=== PATIENT | female | born 1960 | race American Indian/Alaskan Native ===

== ENCOUNTER 2021-10-29 00:56 | Emergency (ER) | payer MEDICARE ==
[2021-10-29 01:04] VITALS: BP 124/78
--- NOTE | 2021-10-29 01:04 | Event Note ---
ED Screening Note Date of service: 10/29/21 Time: 01:03 ED Screening Note: Is a 61-year-old female with a history of CAD, HTN, Obesity, diverticulitis, who presents for epigastric pain radiating to left lower quadrant nausea vomiting, states unable to have bowel movement for the past 2 days. It was exacerbated by attempted p.o., symptoms are relieved by nothing tried. This initial assessment/diagnostic orders/clinical plan/treatment(s) is/are subject to change based on patients health status, clinical progression and re- assessment by fellow clinical providers in the ED. Further treatment and workup at subsequent clinical providers discretion. Patient/guardian urged not to elope from the ED as their condition may be serious if not clinically assessed and managed. Initial orders include: EKG, trop, cbc, cmp, ua, cxr, iv, ct abd pelv
[2021-10-29 01:31] LABS: Basophils # (Auto) 0.1 K/mm3 (0.0-0.1); Basophils % (Auto) 1.2 % (0.0-1.8); Eosinophils # (Auto) 0.2 K/mm3 (0.0-0.4); Eosinophils % (Auto) 2.5 % (0.0-4.3); Hematocrit 41.4 % (30.3-42.9); Hemoglobin 13.7 gm/dl (10.1-14.3); Mean Corpuscular HGB Conc 33 % (30-34); Mean Corpuscular Volume 90 fl (79-97); Monocytes # (Auto) 0.6 K/mm3 (0.0-0.8); Platelet Count 284 K/mm3 (140-440); Red Blood Count 4.63 M/mm3 (3.65-5.03); Red Cell Distribution Width 14.6 % (13.2-15.2)
--- NOTE | 2021-10-29 01:49 | XRay Report ---
CHEST 2 VIEWS INDICATION: chest pain. COMPARISON: None FINDINGS: SUPPORT DEVICES: None. HEART: Within normal limits. LUNGS/PLEURA: No acute air space or interstitial disease. No pneumothorax. ADDITIONAL FINDINGS: None. IMPRESSION: 1. No acute findings. Signer Name: Antwan Bello MD Signed: 10/29/2021 1:45 AM Workstation Name: [id number]
[2021-10-29 01:52] LABS: Alanine Aminotransferase 15 units/L (7-56); Albumin 4.5 g/dL (3.9-5); BUN/Creatinine Ratio 14; Blood Urea Nitrogen 14 mg/dL (7-17); Calcium 10.1 mg/dL (8.4-10.2); Hemolysis Index 2
[2021-10-29] MEDS ORDERED: SODIUM CHLORIDE 0.9% 1000 ML 1,000 ML IV ONE (03:00)
[2021-10-29] MEDS ORDERED: ONDANSETRON 4 MG/2 ML INJ IV ONE (03:00)
--- NOTE | 2021-10-29 04:32 | Cat Scan Report ---
CT ABDOMEN AND PELVIS WITH CONTRAST HISTORY: Pt complains of abd pain with N/V, Hx of Diverticulitis. COMPARISON: None. TECHNIQUE: CT images of the abdomen and pelvis were obtained following administration of intravenous contrast. All CT scans at this location are performed using CT dose reduction for ALARA by means of automated exposure control. CONTRAST: 100 ml of intravenous contrast administered. FINDINGS: Lungs/bones: Lung bases are clear. Degenerative changes in the spine and the pelvis with no acute os seous abnormality. Abdomen/pelvis: The liver is enlarged with no focal mass. The gallbladder, spleen, pancreas, adrenal s, kidneys, and maximal GI tract appear unremarkable. Bladder is unremarkable. Uterus is surgically absent. No pelvic free fluid. There is moderate colonic diverticulosis without significant inflammatory change or wall thickening i dentified. No free air or abscess formation to suggest perforation. No bowel obstruction. IMPRESSION: 1. No acute abnormality identified. Moderate colonic diverticulosis. Signer Name: Antwan Bello MD Signed: 10/29/2021 4:27 AM Workstation Name: [id number]
--- NOTE | 2021-10-29 06:42 | Emergency Department Report ---
ED General Adult HPI - General Chief complaint: Chest Pain Stated complaint: CONSTIPATION Time Seen by Provider: 10/29/21 06:27 Source: patient Mode of arrival: Ambulatory Limitations: No Limitations - History of Present Illness Initial comments: Patient presents with multiple complaints including chest pain, decreased urine output, and constipation. She just not felt well. She has been sick over the last day or so. She states that she has substernal chest burning. This is not worse with inspiration. It was not worse with exertion. She states it is just there. She has no trauma. There has been no injury. She has no cough or congestion. She states that she has been wheezing some but did not use her inhaler. She believes that the chest burning could be related to her asthma as she has had that before. There has been no pain or swelling in the leg. Patient reports that she has not been urinating frequently. She does admit that after IV fluids here, she is urinating better. She also reports constipation. She does not have abdominal pain. She does have diverticular disease and was not sure if that was causing her constipation. She has not noticed melena. She has had no hematochezia. Severity scale (0 -10): 4 - Related Data Previous Rx's Medication Instructions Recorded Last Taken Type predniSONE [Deltasone] 50 mg PO QDAY #5 tab 10/29/21 Unknown Rx Allergies Allergy/AdvReac Type Severity Reaction Status Date / Time oxycodone [From Percocet] AdvReac Severe Anaphylaxis Verified 10/29/21 02:35 acetaminophen [From Lortab] AdvReac Anaphylaxis Verified 10/29/21 02:34 hydrocodone [From Lortab] AdvReac Anaphylaxis Verified 10/29/21 02:34 Penicillins AdvReac Anaphylaxis Verified 10/29/21 02:34 Sulfa (Sulfonamide AdvReac Anaphylaxis Verified 10/29/21 02:35 Antibiotics) ED Review of Systems ROS: Stated complaint: CONSTIPATION Other details as noted in HPI Comment: All other systems reviewed and negative Constitutional: denies: fever Eyes: denies: vision change ENT: denies: hearing loss Respiratory: see HPI Cardiovascular: denies: chest pain Endocrine: denies: unexplained weight loss Gastrointestinal: as per HPI Genitourinary: denies: dysuria Musculoskeletal: denies: back pain Skin: denies: rash Neurological: denies: headache Hematological/Lymphatic: denies: easy bruising ED Past Medical Hx - Past Medical History Previous Medical History?: Yes Hx Hypertension: Yes Hx Congestive Heart Failure: Yes Hx Diabetes: Yes Hx GERD: Yes - Family History Family history: hypertension - Medications Home Medications: Home Medications Medication Instructions Recorded Confirmed Last Taken Type predniSONE [Deltasone] 50 mg PO QDAY #5 tab 10/29/21 Unknown Rx ED Physical Exam - General Limitations: No Limitations, Other (Pulse ox noted and normal) General appearance: alert, in no apparent distress, obese - Head Head exam: Present: atraumatic, normocephalic - Eye Eye exam: Present: normal appearance, EOMI. Absent: scleral icterus - ENT ENT exam: Present: normal orophraynx, normal external ear exam - Neck Neck exam: Present: normal inspection. Absent: meningismus - Respiratory Respiratory exam: Present: wheezes (Bilateral). Absent: respiratory distress - Cardiovascular Cardiovascular Exam: Present: regular rate, normal rhythm - GI/Abdominal GI/Abdominal exam: Present: soft. Absent: distended, tenderness, pulsatile mass - Extremities Exam Extremities exam: Present: normal capillary refill. Absent: calf tenderness - Back Exam Back exam: Absent: CVA tenderness (R), CVA tenderness (L) - Neurological Exam Neurological exam: Present: alert, oriented X3, CN II-XII intact, normal gait. Absent: motor sensory deficit - Psychiatric Psychiatric exam: Present: normal affect, normal mood - Skin Skin exam: Present: warm, dry ED Course Vital Signs 10/29/21 10/29/21 00:56 06:54 Temperature 97.0 F L Pulse Rate 62 71 Respiratory 18 15 Rate Blood Pressure 124/78 [Right] O2 Sat by Pulse 98 100 Oximetry - Reevaluation(s) Reevaluation #1: 10/29/21 06:41 Work-up was complete and the patient was discharged ED Medical Decision Making - Lab Data Result diagrams: 10/29/21 01:12 10/29/21 01:12 - Radiology Data Radiology results: report reviewed - Medical Decision Making Patient presents with chest pain, constipation, decreased urinary output, and other symptoms. There is no evidence of STEMI or NSTEMI based on her current presentation. Clinically, I do not believe this represents ACS. She certainly does not have symptoms suggestive of coronary syndrome. She is not hypoxic. Pain is not pleuritic. There is no unilateral leg swelling. Well score is low. I do not believe this represents pulmonary embolism. She does not have a pulse deficit that would suggest aortic dissection. Abdomen is soft and nontender without peritoneal finding. CT has been reviewed and the patient does not have diverticulitis, but does have diverticulosis. There is no tumor or mass. There is no obstruction. There is no perforation. She was treated symptomatically and referred for outpatient evaluation and follow-up. Critical Care Time: No Critical care attestation.: If time is entered above; I have spent that time in minutes in the direct care of this critically ill patient, excluding procedure time. ED Disposition Clinical Impression: Substernal chest pain, Decreased urine output Asthma exacerbation Qualifiers: Asthma severity: mild Asthma persistence: intermittent Qualified Code(s): J45.21 - Mild intermittent asthma with (acute) exacerbation Disposition: 01 HOME / SELF CARE / HOMELESS Is pt being admited?: No Condition: Stable Instructions: Asthma, Adult, Cough, Adult, [id number], Urodynamic Testing, Nonspecific Chest Pain, Adult Additional Instructions: Drink plenty water. Use your inhaler at home. Follow-up with your regular doctor for recheck. Continue home medication. Return for problems or concerns. Prescriptions: predniSONE [Deltasone] 50 mg PO QDAY #5 tab Referrals: PRIMARY CARE, [Primary Care Provider] - 3-5 Days
--- NOTE | 2021-10-29 10:14 | Electrocardiograph Report ---
Test Date: 2021-10-29 Test Time: 01:06:45 Pat Name: THAO CAMARA Department: Room: Gender: F Campaign Advisor: NEETU : 1960 Requested By: KRISTINE HANNA Order Number: [id number] Reading MD: Von Murillo Measurements Intervals [place] Rate: 63 P: 32 MS: 179 QRS: 0 QRSD: 99 T: 4 QT: 415 QTc: 425 Interpretive Statements Sinus rhythm Anterior infarct, old No previous ECG available for comparison Electronically Signed On 10-29-2021 10:14:34 EST by Von Murillo
== END 2021-10-29 06:40 | disposition home or self-care (01) ==
LOC: ED 00:56
DX: R07.89 Other chest pain (principal); J45.21 Mild intermittent asthma with (acute) exacerbation; R34 Anuria and oliguria; Z88.5 Allergy status to narcotic agent; Z88.6 Allergy status to analgesic agent
CPT/HCPCS: 36415; 71046; 74177; 80053; 83690; 84484; 85025; 93005; 96361; 96374; 99284; J2405; J7030; Q9967; Q0162